=== PATIENT | male | born 1985 | race Two or more races ===

== ENCOUNTER 2021-10-07 08:27 | Inpatient (IN) | payer MEDICAID ==
[~2021-10-07] VITALS: Ht 170.2 cm; Wt 80.0 kg
[2021-10-07 09:11] LABS: BASOPHILS % 0.6 % (0.0-2.0); EOSINOPHILS % 1.4 % (0.0-5.0); HEMATOCRIT. 43.3 % (42.0-52.0); HEMOGLOBIN. 14.6 g/dL (14.0-18.0); LYMPHOCYTES % 38.8 % (20.0-50.0); MEAN CORPUSCULAR HEMOGLOBIN 28.4 pg (28.0-32.0); MEAN CORPUSCULAR VOLUME 84.1 fL (80.0-94.0); MONOCYTES % 9.9 % (2.0-8.0); NEUTROPHILS % 49.3 % (40.0-76.0); PLATELET 184 x1000/uL (130-400); RED BLOOD CELL COUNT 5.15 mill/uL (4.7-6.1); RED CELL DISTRIBUTION WIDTH 13.2 % (11.6-14.6)
[2021-10-07 09:19] LABS: CHLORIDE 105 mEq/L (98-107)
[2021-10-07] MEDS ORDERED: KETOROLAC 30MG/ML VIAL IV STA (14:35)
[2021-10-07] MEDS ORDERED: SODIUM CHLORIDE 0.9% 1,000 ML IV ONE (14:45)
[2021-10-07] MEDS ORDERED: IOHEXOL-350 100 ML BOTTLE ONE ×2 (15:00→18:29)
[2021-10-07] MEDS ORDERED: ASPIRIN 81MG TABLET PO ONE (15:45)
[2021-10-07] MEDS ORDERED: HYDROCODONE/ACETAMINOPHEN 5/325MG TABLET PO PRN (16:30)
[2021-10-07] MEDS ORDERED: GUAIFENESIN 200MG/10ML SUGAR FREE UDC PO PRN (16:30)
[2021-10-07] MEDS ORDERED: DOCUSATE SODIUM 100MG CAPSULE PO PRN (16:30)
[2021-10-07] MEDS ORDERED: IPRATROPIUM/ALBUTEROL 0.5-3(2.5)MG/3ML NEB NEB PRN (16:30)
[2021-10-07] MEDS ORDERED: MAGNESIUM/ALUMINUM HYDROXIDE/SIMETHICONE 30ML UDC PO PRN (16:30)
[2021-10-07] MEDS ORDERED: ONDANSETRON HCL 4MG/2ML INJ IV PRN (16:30)
[2021-10-07] MEDS ORDERED: CLONIDINE 0.1MG TABLET PO PRN (16:30)
[2021-10-07] MEDS ORDERED: ACETAMINOPHEN 325MG TABLET PO PRN (16:30)
[2021-10-07] MEDS ORDERED: LORAZEPAM 0.5MG TABLET PO PRN (16:30)
[2021-10-07] MEDS ORDERED: ACETAMINOPHEN 650MG SUPP PR PRN (16:30)
[2021-10-07] MEDS ORDERED: DIPHENHYDRAMINE 50MG/ML VIAL IV PRN (16:30)
[2021-10-07] MEDS ORDERED: NA PHOS,M-B/NA PHOS,DI-BA ENEMA 118ML PR PRN (16:30)
[2021-10-07] MEDS ORDERED: NALOXONE HCL 0.4MG/ML VIAL IV PRN (16:45)
[2021-10-07 19:14] VITALS: BP 125/70
[2021-10-07] MEDS ORDERED: FAMOTIDINE 20MG TABLET PO SCH (21:00)
[2021-10-08] MEDS ORDERED: ASPIRIN 81MG EC TABLET PO SCH (09:00)
== END 2021-10-07 22:03 | disposition left against medical advice (07) | DRG 203 ==
LOC: ER 08:27 → 7WST 15:29 → EDBEDREQ 15:34 → EDBEDREQTM 15:34 → ENRESERV 15:59
PROVIDERS: ADMIT Internal Medicine; ATTEND Internal Medicine
DX: M94.0 Chondrocostal junction syndrome [Tietze] (principal); R20.2 Paresthesia of skin; Z53.29 Procedure and treatment not carried out because of patient's decision for other reasons
CPT/HCPCS: 36415; 71045; 71275; 80053; 83880; 84484; 85025; 93005; 93971; 99285; J1885; J7030; Q9967